=== PATIENT | female | born 1955 | race Caucasian/White ===

== ENCOUNTER 2017-11-16 14:41 | Outpatient (CLI) | payer BC ==
[2017-11-16] MEDS ORDERED: BARIUM SULFATE 240 ML ORAL.SUSP PO ONE (14:42)
[2017-11-16] MEDS ORDERED: BARIUM SULFATE 148 GM SUSP.RECON PO ONE (16:54)
== END 2017-11-16 23:59 | disposition home or self-care (01) ==
LOC: RAD 14:41
PROVIDERS: ATTEND Internal Medicine
DX: R13.10 Dysphagia, unspecified (principal)
CPT/HCPCS: 74230; 92611